=== PATIENT | female | born 1975 | race Caucasian/White ===

== ENCOUNTER → 2021-12-19 07:31 | Outpatient (CLI) | payer OTHER, SELFPAY ==
[2021-12-19 09:08] LABS: Influenza A - CEPHEID Flu A NEGATIVE (NEGATIVE); Influenza B - CEPHEID Flu B NEGATIVE (NEGATIVE)
[2021-12-19 09:30] LABS: COVID-19 CEPHEID PCR (VTM/NP) POSITIVE (Negative)
== END ==
PROVIDERS: Visit Provider Nurse Practitioner Family
DX: R05.9 Cough, unspecified (principal); Z20.822 Contact with and (suspected) exposure to COVID-19
CPT/HCPCS: 0240U